=== PATIENT | male | born 1980 | race Caucasian/White ===

== ENCOUNTER 2022-10-18 13:14 | Emergency (ER) | payer OTHER, SELFPAY ==
[2022-10-18 13:26] VITALS: BP 144/90; PULSE 74; RESP 16; TEMP 36.6; O2SAT 99; BMI 22.4
--- NOTE | 2022-10-18 13:53 | PC.NURSE ---
CALL TO LOBBY NO ANSWER
[2022-10-18 14:05] LABS: Basophils # 0.1 10^3/uL (0.0-0.1); Basophils % 1.8 %; Eosinophils # 0.4 10^3/uL (0.0-0.8); Hematocrit 46.5 % (42.0-52.0); Lymphocytes % 32.8 %; Mean Corpuscular HGB Conc 32.3 g/dL (30.0-36.0); Mean Corpuscular Volume 89.8 fl (80-94); Mean Platelet Volume 9.8 fL (7.4-10.4); Monocytes # 0.3 10^3/uL (0.2-0.9); Monocytes % 4.5 %; Neutrophils # 3.38 10^3/uL (1.8-7.7); Neutrophils % 54.7 %; Nucleated Red Blood Cells % 0 %; Platelet Count 277 10^3/cmm (130-400); Red Blood Count 5.18 10^6/uL (4.1-5.3); Red Cell Distribution Width 11.8 % (12.1-15.1); White Blood Count 6.2 10^3/uL (4.0-10.0)
[2022-10-18 14:23] LABS: Alanine Aminotransferase 26 U/L (0-41); Albumin Level 4.7 g/dL (3.5-5.2); Alkaline Phosphatase 72 U/L (40-130); Anion Gap 17.6 (5-19); Aspartate Amino Transferase 23 U/L (0-40); Blood Urea Nitrogen 10 mg/dL (6-20); Calcium 9.6 mg/dL (8.5-10.5); Carbon Dioxide 27 mmol/L (22-29); Chloride 100 mmol/L (98-107); Globulin 3.1 g/dL (1.3-4.6); Glomerular Filtration Rate 93.5 mL/min (90-130); Glucose 108 mg/dL (65-115); Osmolality Calculated 290 mOsm/kg (285-295); Potassium 4.6 mmol/L (3.5-5.1); Sodium 140 mmol/L (136-145); Total Bilirubin 0.6 mg/dL (0.15-1.2); Total Protein 7.8 g/dL (6.6-8.7)
--- NOTE | 2022-10-18 14:50 | ED_ITS ---
HPI - Eye Problem General: Chief complaint: Eye Problems Stated complaint: vision gone on Right side Time Seen by Provider: 10/18/22 14:23 Source: patient Mode of arrival: ambulatory Limitations: no limitations History of Present Illness: Patient is a 42-year-old male who presents to ED today for evaluation of some visual changes to his right eye. Patient states over the past several years he has had approximately 7 total episodes where he will get what he describes as a diagonal wave of blurry vision to the right eye. He states following this he will then lose peripheral vision to the right eye. He states this happens over the course of about an hour or so. He states vision will then return to normal and he will get nauseous and developed a headache. He states if he can take a nap and take some Excedrin headache he will wake up with symptoms fully resolved. Patient states he has never sought any form of evaluation for this. He has never had any complete vision loss. No known problems with the right eye. Patient does wear glasses and feels like his eye exams are up-to-date. Terence robin states he is being seen today because he was told there could be some concern for temporal arteritis. Upon arrival to the ED and during my initial examination patient tells me his vision is back to normal. He does feel slightly nauseous. chief complaint: vision change Onset (ago): hour(s) Onset description: gradual Duration: improved and now resolved Location: right eye Mechanism: none Associated symptoms: Denies fever(s), headache(s) or neck pain Treatments Prior to Arrival: none Review of Systems Const: Denies: fever(s), chills, body aches, fatigue or malaise Eyes: Reports: change in vision and blurry vision; Denies: blind spots, photophobia, eye discomfort, eye discharge, floaters or seeing flashes Card: Denies: chest pain Resp: Denies: dyspnea GI: Denies: abdominal pain Musc: Denies: neck pain, back pain, extremity pain or joint pain Skin/Breast: Denies: rash Neuro: Denies: headache(s), numbness in extremities, weakness in extremities, sensory changes or dizziness Physical Exam Const: COMMON NORMALS: no acute distress, average body habitus, patient oriented x3, no limitations, healthy appearing, alert and well nourished GENERAL APPEARANCE: cooperative ORIENTATION/CONSCIOUSNESS: Yes awake, Yes oriented to person, Yes oriented to place and Yes oriented to time HENMT: COMMON NORMALS: normocephalic and atraumatic HEAD & SCALP: normal to inspection, normocephalic and atraumatic FACE & SINUS: normal facial exam Eye: COMMON NORMALS: Equal, round and reactive pupils present, EOMs intact bilaterally, conjunctivae normal and normal visual ramos by confrontation GENERAL EYE: appearance normal, both eyes and all related structures and normal light reflex VISUAL ACUITY: Yes acuity normal VISUAL RAMOS: No peripheral vision loss and No central vision loss ALIGNMENT: Yes alignment normal PERIORBITAL: periorbital findings normal EYELID: eyelids normal CONJUNCTIVA: Yes conjunctivae normal PUPIL: Yes Equal, round and reactive pupils present DIRECT OPHTHALMOSCOPY: Yes normal light reflex Neck/C-Spine: COMMON NORMALS: full ROM and no lymphadenopathy GENERAL: Yes normal visual inspection Neuro: AUBREY COMA SCALE: document GCS findings Aubrey coma scale eye open ing: Spontaneous Aubrey coma scale verbal response: Orientated Aubrey coma scale motor response: Obey commands [place] coma scale total score: 15 COMMON NORMALS: patient oriented x3 and CN's II-XII intact bilaterally SENSORIUM/ORIENTATION: Yes alert, Yes oriented to person, Yes oriented to place and Yes oriented to time Course Vital Signs: Vital signs: Vital Signs Temperature 97.9 F 10/18/22 13:26 Pulse Rate 74 10/18/22 13:26 Respiratory Rate 16 10/18/22 13:26 Blood Pressure 144/90 10/18/22 13:26 Pulse Oximetry 99 10/18/22 13:26 Oxygen Delivery Me thod Room Air 10/18/22 13:26 MDM - Eye Problem Medical Decision Making Re-assuring from an ED standpoint that this has been present for many years and patient has had several previous identical episodes. Patient's history and lack of risk factors does not seem consistent with carotid disease/embolic source or giant cell arteritis for cause (will add on ESR to blood work). Nothing to suggest seizure. No homonymous hemianopsia to suggest vertebrobasilar ischemia. Unlikely papilledema. Possible retinal vasospasm although unlikely given the nausea/headache history following visual change resolution. At this time I think symptoms most likely are secondary to an ocular/retinal migraine. Will go ahead and place referral for case management to get him set up with primary care for follow-up. Lab Data 10/18/22 13:49 10/18/22 13:49 Laboratory Results WBC 6.2 10^3/uL (4.0-10.0) 10/18/22 13:49 RBC 5.18 10^6/uL (4.1-5.3) 10/18/22 13:49 Hgb 15.0 g/dL (11.7-16.6) 10/18/22 13:49 Hct 46.5 % (42.0-52.0) 10/18/22 13:49 MCV 89.8 fl (80-94) 10/18/22 13:49 MCH 29.0 pg (28.0-34.0) 10/18/22 13:49 MCHC 32.3 g/dL (30.0-36.0) 10/18/22 13:49 RDW 11.8 % (12.1-15.1) L 10/18/22 13:49 Plt Count 277 10^3/cmm (130-400) 10/18/22 13:49 MPV 9.8 fL (7.4-10.4) 10/18/22 13:49 Neut % (Auto) 54.7 % 10/18/22 13:49 Lymph % (Auto) 32.8 % 10/18/22 13:49 [place] % (Auto) 4.5 % 10/18/22 13:49 Eos % (Auto) 6.0 % 10/18/22 13:49 Baso % (Auto) 1.8 % 10/18/22 13:49 Neut # (Auto) 3.38 10^3/uL (1.8-7.7) 10/18/22 13:49 Lymph # (Auto) 2.0 10^3/uL (0.8-4.8) 10/18/22 13:49 [place] # (Auto) 0.3 10^3/uL (0.2-0.9) 10/18/22 13:49 Eos # (Auto) 0.4 10^3/uL (0.0-0.8) 10/18/22 13:49 Baso # (Auto) 0.1 10^3/uL (0.0-0.1) 10/18/22 13:49 Nucleated RBC % (auto) 0 % 10/18/22 13:49 Nucleated RBCs # 0.0 /100WBC 10/18/22 13:49 Sodium 140 mmol/L (136-145) 10/18/22 13:49 Potassium 4.6 mmol/L (3.5-5.1) 10/18/22 13:49 Chloride 100 mmol/L (98-107) 10/18/22 13:49 Carbon Dioxide 27 mmol/L (22-29) 10/18/22 13:49 Anion Gap 17.6 (5-19) 10/18/22 13:49 BUN 10 mg/dL (6-20) 10/18/22 13:49 Creatinine 0.9 mg/dL (0.7-1.2) 10/18/22 13:49 GFR Calculation 93.5 mL/min (90-130) 10/18/22 13:49 Glucose 108 mg/dL (65-115) 10/18/22 13:49 Calculated Osmolality 290 mOsm/kg (285-295) 10/18/22 13:49 Calcium 9.6 mg/dL (8.5-10.5) 10/18/22 13:49 Total Bilirubin 0.6 mg/dL (0.15-1.2) 10/18/22 13:49 AST 23 U/L (0-40) 10/18/22 13:49 ALT 26 U/L (0-41) 10/18/22 13:49 Alkaline Phosphatase 72 U/L (40-130) 10/18/22 13:49 Total Protein 7.8 g/dL (6.6-8.7) 10/18/22 13:49 Albumin 4.7 g/dL (3.5-5.2) 10/18/22 13:49 Globulin 3.1 g/dL (1.3-4.6) 10/18/22 13:49 Discharge Plan Discharge Patient Disposition: Home Clinical Impression: Ocular migraine Condition: Stable Discharge Orders: Discharge ED (Routine); Ordered 10/18/22 Ordered By: Tana Lopez Patient Instructions: Ocular Migraine (ED) Activity Restrictions/Additional Instructions: As we discussed I believe symptoms most likely are secondary to an ocular migraine. I will go ahead and add an ESR onto your blood work as you mentioned concern for temporal arteritis/giant cell arteritis-I have a very low suspicion for this. I will contact you if this lab comes back elevated. Case management should contact you this week and set you up with a primary care provider. Coding Level of Care Code ED Sisal Operator for Lurdes Regan
[2022-10-18 15:13] LABS: Erythrocyte Sedimentation Rate < 1 mm/hr (0-10)
--- NOTE | 2022-10-19 08:44 | DCPLANNER ---
validation manager had message to speak with patient about getting established with a primary care physician. validation manager called patient, unable to speak with patient and unable to leave a voicemail for patient at this time.
== END 2022-10-18 14:53 | disposition home or self-care (01) ==
PROVIDERS: Emergency Medicine; Emergency Provider Physician Assistant
DX: G43.809 Other migraine, not intractable, without status migrainosus (principal)
CPT/HCPCS: 36415; 80053; 85025; 85651; 99283

== ENCOUNTER 2023-08-28 20:06 | Emergency (ER) | payer OTHER, SELFPAY ==
--- NOTE | 2023-08-28 20:08 | ECG_ITS ---
[facility] Test Date: 2023-08-28 Pat Name: Benjamin Carbajal Department: Room: Gender: Male Cash Poster: : 1980 Requested By: Suman Almanza Order Number: [id number] Larkin MD: Roselyn Chaves M.D. Measurements Intervals [place] Rate: 87 P: 70 MT: 112 QRS: 87 QRSD: 97 T: 59 QT: 362 QTc: 436 Interpretive Statements SINUS RHYTHM WITH SHORT MT INTERVAL MINIMAL VOLTAGE CRITERIA FOR LVH, CONSIDER NORMAL VARIANT [MEETS CRITERIA IN ONE OF: R(aVL), S(V1), R(V5), R(V5/V6)+S(V1)] No previous ECG available for comparison Electronically Signed On 08-29-2023 23:00:16 CDT by Roselyn Chaves M.D. [id number] f
--- NOTE | 2023-08-28 20:15 | XRR_ITS ---
PROCEDURE INFORMATION: Exam: XR Chest Exam date and time: 08/28/2023 8:38 PM Age: 42 years old Clinical indication: Chest pressure and sternal or substernal pain and right-sided; Additional info: Middle to right sided chest pain, radiates down back occasionally, feels like heat spreads throughout chest TECHNIQUE: Imaging protocol: Radiologic exam of the chest. Views: 1 view. COMPARISON: No relevant prior studies available. FINDINGS: Lungs: Unremarkable. No consolidation. Pleural spaces: Unremarkable. No pleural effusion. No pneumothorax. Heart/Mediastinum: Unremarkable. No cardiomegaly. Bones/joints: Unremarkable. XR/XR chest 1V portable [id number] IMPRESSION: No acute findings.
[2023-08-28 20:19] VITALS: BP 156/95; PULSE 88; RESP 16; TEMP 36.7; O2SAT 100
[2023-08-28 20:40] LABS: Basophils # 0.1 10^3/uL (0.0-0.1); Eosinophils # 0.3 10^3/uL (0.0-0.8); Eosinophils % 4.5 %; Hematocrit 43.6 % (37-53); Lymphocytes % 45.3 %; Mean Corpuscular Hemoglobin 29.7 pg (27-33); Mean Corpuscular Volume 89.9 fl (82-101); Mean Platelet Volume 9.6 fL (7.4-10.4); Monocytes # 0.3 10^3/uL (0.2-0.9); Monocytes % 4.3 %; Neutrophils # 2.99 10^3/uL (1.8-7.7); Neutrophils % 44.8 %; Nucleated Red Blood Cells % 0 %; Platelet Count 273 10^3/cmm (157-399); Red Blood Count 4.85 10^6/uL (3.85-5.65); Red Cell Distribution Width 11.6 % (12.1-15.1); White Blood Count 6.69 10^3/uL (3.29-11.43)
[2023-08-28 21:02] LABS: Alanine Aminotransferase 21 U/L (0-41); Albumin Level 4.7 g/dL (3.5-5.2); Alkaline Phosphatase 67 U/L (40-130); Anion Gap 13.9 (5-19); Aspartate Amino Transferase 18 U/L (0-40); Blood Urea Nitrogen 11 mg/dL (6-20); Calcium 9.1 mg/dL (8.5-10.5); Carbon Dioxide 28 mmol/L (22-29); Chloride 101 mmol/L (98-107); Creatinine Clr Calc Pharmacy 105.8326; Globulin 2.6 g/dL (1.3-4.6); Glomerular Filtration Rate 107.1 mL/min (90-130); Glucose 121 mg/dL (65-115); Osmolality Calculated 289 mOsm/kg (285-295); Potassium 3.9 mmol/L (3.5-5.1); Sodium 139 mmol/L (136-145); Total Bilirubin 0.5 mg/dL (0.15-1.2); Total Protein 7.3 g/dL (6.6-8.7)
[2023-08-28 21:04] LABS: Troponin(5th) Baseline < 6 ng/L (0-15)
--- NOTE | 2023-08-28 21:23 | W.ED.CHESTPA ---
HPI - Chest Pain General: Chief Complaint: Chest Pain Stated Complaint: chest pain heart racing Time Seen by Provider: 08/28/23 21:09 History of Present Illness: 42-year-old male presents emergency department states that he has had 2 episodes of intermittent sharp stabbing chest discomfort that he states is to the right side of his chest. He denies shortness of breath nausea vomiting fevers chills or night sweats. He states that when the sharp stabbing chest pain occurred the pain was a 5 out of 10 and at present here in the emergency department it is a 1 out of 10. He does not appear to be in any acute distress. He states he has never had any problems like this in the past. He states that nothing made the pain worse in the pain dissipated on its own. He states that he feels like it may have been a spasm of his esophagus or reflux, as the pain turned into a burning type substernal pain after it initially was sharp. Associated symptoms: Reports palpitations Review of Systems General: Reports: 10 or more systems reviewed and unremarkable except in HPI and below Card: Reports: chest pain and palpitations GI: Reports: heartburn Physical Exam Narrative: EXAM NARRATIVE: Constitutional: the patient appears well nourished and of normal development. Vital signs as documented. No acute distress at present. Alert and oriented-to person, place, time and situation. Head, eyes, ears, nose, mouth, throat: Normocephalic, atraumatic. Pupils-equal, round, reactive to light. No scleral icterus. Normal-appearing external ears. Normal appearing nasal turbinates, no drainage. No obvious oral lesions, posterior oropharynx without erythema or exudates. Neck: Supple, trachea is midline, no lymphadenopathy, no jugular venous distension, thyromegaly, or carotid bruits. Carotid upstrokes are brisk bilaterally. Lungs: clear to auscultation to all lung warren. Symmetrical rise and fall of chest, no obvious signs of increased work of breathing at present. Cardiac: Regular rate and rhythm, positive S1, S2. No murmurs, rubs or gallops that I can appreciate Abdomen: Soft, non-tender to palpation, normal active bowel sounds to all quadrants. No palpable masses, no organomegaly and abdominal bruits. Extremities: 2+ pulses in the upper extremities that are equal bilaterally, 2+ pulses in the lower extremities that are equal bilaterally. Non-edematous. Moves all extremities well, sensation to all extremities are noted. Skin: Warm, dry, intact. Course Reevaluation(s): Reevaluation #1: I discussed the laboratory findings and reevaluation the patient after he received a GI cocktail, he states improved and complete resolution of his discomfort. Time: 23:01 Vital Signs: Vital signs: Vital Signs Temperature 98.1 F 08/28/23 20:19 Pulse Rate 62 08/28/23 22:48 Respiratory Rate 16 08/28/23 20:19 Blood Pressure 156/95 08/28/23 20:19 Pulse Oximetry 100 08/28/23 20:19 MDM - Chest Pain Medical Decision Making Physical exam completed and documented twelve-lead EKG obtained no acute findings cardiac enzyme was negative patient remains chest pain-free no significant abnormality on his CBC and CMP I did provide the patient a GI cocktail and he did state relief. I discussed the laboratory findings with the patient and I we will discharge him home with recommended follow-up with a primary care provider of his choice. Medical Records I reviewed the patient's medical records. Lab Data I reviewed the patient's lab results. 08/28/23 20:33 08/28/23 20:33 Radiology Impressions Chest X-Ray 08/28/23 20:15 IMPRESSION: No acute findings. Laboratory Results WBC 6.69 10^3/uL (3.29-11.43) 08/28/23 20:33 RBC 4.85 10^6/uL (3.85-5.65) 08/28/23 20:33 Hgb 14.40 g/dL (11.27-16.99) 08/28/23 20:33 Hct 43.6 % (37-53) 08/28/23 20:33 MCV 89.9 fl (82-101) 08/28/23 20:33 MCH 29.7 pg (27-33) 08/28/23 20: MCHC 33.0 g/dL (30-55) 08/28/23 20:33 RDW 11.6 % (12.1-15.1) L 08/28/23 20:33 Plt Count 273 10^3/cmm (157-399) 08/28/23 20:33 MPV 9.6 fL (7.4-10.4) 08/28/23 20:33 Neut % (Auto) 44.8 % 08/28/23 20: Lymph % (Auto) 45.3 % 08/28/23 20:33 [place] % (Auto) 4.3 % 08/28/23 20:33 Eos % (Auto) 4.5 % 08/28/23 20:33 Baso % (Auto) 1.0 % 08/28/23 20: Neut # (Auto) 2.99 10^3/uL (1.8-7.7) 08/28/23 20: Lymph # (Auto) 3.0 10^3/uL (0.8-4.8) 08/28/23 20: [place] # (Auto) 0.3 10^3/uL (0.2-0.9) 08/28/23 20: Eos # (Auto) 0.3 10^3/uL (0.0-0.8) 08/28/23 20: Baso # (Auto) 0.1 10^3/uL (0.0-0.1) 08/28/23 20: Nucleated RBC % (auto) 0 % 08/28/23 20: Nucleated RBCs # 0.0 /100WBC 08/28/23 20:33 Sodium 139 mmol/L (136-145) 08/28/23 20:33 Potassium 3.9 mmol/L (3.5-5.1) 08/28/23 20:33 Chloride 101 mmol/L (98-107) 08/28/23 20:33 Carbon Dioxide 28 mmol/L (22-29) 08/28/23 20:33 Anion Gap 13.9 (5-19) 08/28/23 20:33 BUN 11 mg/dL (6-20) 08/28/23 20:33 Creatinine 0.8 mg/dL (0.7-1.2) 08/28/23 20:33 GFR Calculation 107.1 mL/min (90-130) 08/28/23 20:33 Glucose 121 mg/dL (65-115) H 08/28/23 20:33 Calculated Osmolality 289 mOsm/kg (285-295) 08/28/23 20:33 Calcium 9.1 mg/dL (8.5-10.5) 08/28/23 20:33 Total Bilirubin 0.5 mg/dL (0.15-1.2) 08/28/23 20:33 AST 18 U/L (0-40) 08/28/23 20:33 ALT 21 U/L (0-41) 08/28/23 20:33 Alkaline Phosphatase 67 U/L (40-130) 08/28/23 20:33 Troponin T Baseline < 6 ng/L (0-15) 08/28/23 20:33 Total Protein 7.3 g/dL (6.6-8.7) 08/28/23 20:33 Albumin 4.7 g/dL (3.5-5.2) 08/28/23 20:33 Globulin 2.6 g/dL (1.3-4.6) 08/28/23 20:33 All radiology interpretation(s) finalized by discharge EKG Data EKG 1: Interpretation: Twelve-lead EKG obtained at 2007 and reviewed at 2009 demonstrates sinus rhythm at a rate of 87, AL interval 112, QRS duration 97, QT [address] elevation or depression at present to demonstrate acute ischemia or infarction. EKG 2: Interpretation: Twelve-lead EKG obtained at 2126 reviewed at 2129 demonstrates sinus bradycardia at a rate of 59 bpm, AL interval 111, QRS duration 97, QT 379, QTc [address] elevation or depression to demonstrate acute ischemia or infarction at present. Discharge Plan Discharge Patient Disposition: Home Clinical Impression: Atypical chest pain, Esophageal spasm, Chest pain due to GERD Condition: Stable Prescriptions: New pantoprazole 20 mg tablet,delayed release (DR/EC) 20 mg PO DAILY 28 Days Qty: 30 0RF Discharge Orders: Discharge ED (Routine); Ordered 08/28/23 Ordered By: Naman Bradshaw Referrals: Landon Reis DO [Physician] - Discharge Diet: Usual diet Discharge Activity: Resume usual activity Patient Instructions: Opioid Safety, Pain Management Activity Restrictions/Additional Instructions: Activity Restrictions/Additional Instructions: Thank you for choosing [facility] for your healthcare needs today. Please realize that you were seen in the Emergency Department and that we are providing you with an emergency medical screening exam and this may not be a complete and all inclusive of all the testing and or medical work-up that you may need to determine your ailment or severity of your illness. It is very important that you follow-up as instructed with your Primary care provider or Specialist for additional evaluation and to discuss your medical treatment plan. Coding Level of Care Code ED Roaster Operator for Lurdes Regan
[2023-08-28] MEDS: lidocaine 2% viscous 15 ML, aluminum-mag hydrox-simethicon 30 ML, sucralfate oral liq 1 GM PO (21:53)
--- NOTE | 2023-08-28 22:16 | ECG_ITS ---
[facility] Test Date: 2023-08-28 Pat Name: Benjamin Carbajal Department: Room: Gender: Male Health Care Coach: : 1980 Requested By: Suman Almanza Order Number: [id number] Trae MD: Roselyn Chaves M.D. Measurements Intervals [place] Rate: 59 P: 12 DC: 111 QRS: 78 QRSD: 97 T: 45 QT: 379 QTc: 376 Interpretive Statements SINUS BRADYCARDIA WITH SHORT DC INTERVAL EARLY REPOLARIZATION [ST ELEVATION WITH NORMALLY INFLECTED T-WAVE] No previous ECG available for comparison Electronically Signed On 08-29-2023 23:17:56 CDT by Roselyn Chaves M.D. [id number]
[2023-08-28 22:48] VITALS: PULSE 62
[2023-08-28 23:19] LABS: Troponin 5 2HR 7.44 ng/L (0-15); Troponin 5 2HR Delta 1.44001 ABS# (0-10)
[2023-08-28 23:42] VITALS: BP 112/74; PULSE 62; RESP 18
== END 2023-08-28 23:18 | disposition home or self-care (01) ==
PROVIDERS: Emergency Medicine; Emergency Provider Internal Medicine
DX: R07.89 Other chest pain (principal); K21.9 Gastro-esophageal reflux disease without esophagitis; K22.4 Dyskinesia of esophagus
CPT/HCPCS: 36415; 71045; 80053; 84484; 85025; 93005; 99285

== ENCOUNTER 2023-09-15 06:26 | Outpatient (CLI) | payer OTHER, SELFPAY ==
--- NOTE | 2023-09-15 06:45 | US_ITS ---
WS: [id number] RIGHT UPPER QUADRANT ULTRASOUND HISTORY: epigastric pain COMPARISON: None available. Liver: 14.9 cm in length. Normal size liver and echogenicity. No bile duct dilatation or mass. Portal Vein: Normal hepatopetal flow with monophasic waveform. Gallbladder: Normally distended gallbladder. There is a nonmobile, nonshadowing focus in the gallblad nick measuring 5 x 4 mm. Most consistent with a small hyperplastic gallbladder polyp. No stones. CBD: 0.3 cm Pancreas: Normal size and echogenicity. Right kidney: 9.7 cm in length. Normal size and echogenicity. No hydronephrosis or mass. Aorta and IVC: Unremarkable abdominal aorta and IVC. No ascites. IMPRESSION: 1. No cholelithiasis. 2. Small, hyperplastic gallbladder polyp. 3. Otherwise negative.
== END 2023-09-15 06:27 | disposition home or self-care (01) ==
LOC: RAD 06:26
PROVIDERS: PCP Family Medicine; Visit Provider Surgery
DX: K82.4 Cholesterolosis of gallbladder (principal); R10.13 Epigastric pain
CPT/HCPCS: 76705

== ENCOUNTER 2023-09-20 10:45 | Day surgery (SDC) | payer OTHER, SELFPAY ==
[2023-09-20 12:44] VITALS: BP 124/87; PULSE 57; RESP 20; TEMP 36.1; O2SAT 100; BMI 20.1
[2023-09-20] MEDS: sodium chloride 0.9% 1,000 ML 30 ML IV (13:48)
--- NOTE | 2023-09-20 14:41 | W.PM.OPSUD ---
Surgery/Procedure H&P Update DATE OF PROCEDURE: September 20, 2023 DATE H&P PERFORMED: 09/06/23 H&P UPDATE INFORMATION: I have reviewed H&P completed within last 30 days, I have examined patient prior to procedure and No changes to prior documentation PLANNED PROCEDURE: Operation Date: 09/20/23 13:30 Proposed Procedures p EGD(Not Applicable) - Landon Reis DO
[2023-09-20 15:01] VITALS: BP 109/61; PULSE 58; RESP 12; TEMP 36.4; O2SAT 100
[2023-09-20 15:15] VITALS: BP 126/80; PULSE 50; RESP 18; O2SAT 100
--- NOTE | 2023-09-20 15:30 | ANE.PACU2 ---
Inpatient post-anesthesia follow up: Airway intact: Yes Vital signs: Temperature 97.6 F Pulse Rate 50 Respiratory Rate 18 Blood Pressure 126/80 Pulse Oximetry 100 Oxygen Delivery Me thod Room Air Oxygen Flow Rate Fraction of Inspir ed Oxygen Hydration adequate: Yes Nausea and vomiting: No Pain level: 1 Mental status: Baseline
== END 2023-09-20 15:30 | disposition home or self-care (01) ==
PROVIDERS: PCP Family Medicine; Visit Provider Surgery
PROC: 0DJ08ZZ Inspection of Upper Intestinal Tract, Via Natural or Artificial Opening Endoscopic (ICD-10-PCS; CPT 43235; principal; 2023-09-20 13:30)
DX: R13.10 Dysphagia, unspecified (principal); K29.50 Unspecified chronic gastritis without bleeding
CPT/HCPCS: 43239; 88305; J2704; J7030

== ENCOUNTER 2023-10-13 07:44 | Outpatient (CLI) | payer OTHER, SELFPAY ==
--- NOTE | 2023-10-13 08:00 | NM_ITS ---
WS: [id number] NUCLEAR MEDICINE HIDA SCAN WITH GALLBLADDER EJECTION FRACTION HISTORY: epigastric pain COMPARISON: Gallbladder ultrasound 09/15/2023 TECHNIQUE: The patient was intravenously injected with 7.5 mCi of TC99m Mebrofenin. Immediate imaging over the right upper quadrant was followed by 5 minute image and additional images for a total of 60 minutes. Normal uptake of radiotracer throughout the liver. Activity identified in the gallbladder at 15 minutes and well distended by 60 minutes. Activity in the proximal small bowel was seen by 30 minutes. Good washout of the radiotracer from the liver by 60 minutes. The patient then drank 8 ounces of Ensure Plus. Ejection fraction at 60 minutes was 85%. Normal GB ej ection fraction is 35-75%. Post fatty meal symptoms: None. IMPRESSION: 1. Normal HIDA scan. 2. Normal gallbladder ejection fraction.
== END 2023-10-13 07:45 | disposition home or self-care (01) ==
LOC: RAD 07:45
PROVIDERS: PCP Family Medicine; Visit Provider Surgery
DX: R10.13 Epigastric pain (principal)
CPT/HCPCS: 78227; A9537

== ENCOUNTER 2024-01-11 09:56 | Emergency (ER) | payer OTHER, SELFPAY ==
[2024-01-11 10:06] VITALS: BP 144/89; PULSE 73; RESP 18; TEMP 36.8; O2SAT 99; BMI 21.7
[2024-01-11 11:43] LABS: Basophils # 0.1 10^3/uL (0.0-0.1); Basophils % 1.7 %; Eosinophils # 0.6 10^3/uL (0.0-0.8); Eosinophils % 9.4 %; Hematocrit 48.6 % (37-53); Mean Corpuscular HGB Conc 32.7 g/dL (30-55); Mean Corpuscular Hemoglobin 29.7 pg (27-33); Mean Corpuscular Volume 90.8 fl (82-101); Mean Platelet Volume 9.8 fL (7.4-10.4); Monocytes # 0.4 10^3/uL (0.2-0.9); Monocytes % 6.2 %; Neutrophils # 2.77 10^3/uL (1.8-7.7); Neutrophils % 47.5 %; Nucleated Red Blood Cells % 0 %; Platelet Count 265 10^3/cmm (157-399); Red Blood Count 5.35 10^6/uL (3.85-5.65); Red Cell Distribution Width 11.9 % (12.1-15.1); White Blood Count 5.83 10^3/uL (3.29-11.43)
--- NOTE | 2024-01-11 11:48 | CT_ITS ---
WS: [id number] CT NECK WITH CONTRAST HISTORY: r neck and jaw pain TECHNIQUE: Contiguous 2 mm axial images are performed through the neck with intravenous contrast. Sag ittal and coronal reformats are also submitted. All CT scans at [facility] use at least one o f these dose optimization techniques: automated exposure control; mA and/or kV adjustment per patient size (includes targeted exams where dose is matched to clinical indication); or iterative reconstruc tion. CONTRAST: CONTRAST: Omnipaque 350; 100 mL IV. DLP: 216.41 mGy.cm COMPARISON: None available. [place] tonsils are very mildly prominent but there is no mass or abnormal enhancement. Larynx and s ubglottic airway are negative. Torus tubarius and fossa of Rosenmuller and parapharyngeal fat are normal. No significant lymphadenopathy is identified. Thyroid gland and salivary glands are normally enhancing with no masses. No osseous abnormalities. Visualized portions of the skull base demonstrate no abnormalities. Orbits and globes are within norm al limits. No soft tissue masses. Visualized paranasal sinuses and mastoid air cells are normal. Lung apices are clear. CT/CT neck w con* [id number] IMPRESSION: 1. No acute abnormality noted in the neck CT. There are small lymph nodes. 2. Mildly prominent adenoid and [place] tonsil tissue which is symmetric. If there is difficulty swallowing direct visualization could be obtained. 3. No disc protrusions are identified or central cervical stenosis. If neck pa in persists MRI C-spine on a nonemergent basis may be of benefit.
--- NOTE | 2024-01-11 11:50 | ED_ITS ---
HPI - Neck Pain/Injury 2 General: Chief Complaint: Neck Pain/Injury Stated Complaint: Neck & Jaw pain Time Seen by Provider: 01/11/24 11:44 Source: patient Mode of arrival: ambulatory Limitations: no limitations History of Present Illness: 43-year-old male who states that he been having right-sided neck and jaw pain since August states he had seen a dentist and had to right lower molars pulled states his kidney had pain and some numbness and concerned that he may have cancer. Patient denies any fevers denies any worse improving factors. Associated symptoms: Denies headache(s) or nausea Review of Systems 2 Const: Denies: fever(s), chills, body aches or change in appetite ENMT: Denies: throat pain or dental pain Card: Denies: chest pain Resp: Denies: dyspnea GI: Denies: abdominal pain, nausea, vomiting or diarrhea Musc: Denies: neck pain or back pain Skin/Breast: Denies: rash Neuro: Denies: headache(s) PFSH ED 2 PFSH: Medical History Ocular migraine Surgical History No pertinent past surgical history Social History Smoking and tobacco/nicotine status: former use of tobacco/nicotine Quit status (tobacco/nicotine): has quit using Year quit tobacco: 2011 Second hand smoke exposure: Yes Alcohol intake: never Substance/Drug Use: never Adopted: No service: No Current occupation: Pathology Current occupational exposures/hazards: Yes Current gender identity: Male Physical Exam 2 Const: COMMON NORMALS: no acute distress, patient oriented x3 and healthy appearing HENMT: COMMON NORMALS: normocephalic and atraumatic HEAD & SCALP: n ormocephalic and atraumatic TYMPANIC MEMBRANE: TM normal on the right O THER: No obvious abnormalities to right lower teeth exam the right side of the neck is normal Eye: COMMON NORMALS: Equal, round and reactive pupils present and EOMs intact bilaterally PUPIL: Yes Equal, round and reactive pupils present Neck/C-Spine: COMMON NORMALS: full ROM and supple Chest: COMMONS NORMALS: normal inspection of the chest Resp: COMMON NORMALS: normal respiratory effort Extremity: COMMON NORMALS: normal to inspection and full ROM Neuro: COMMON NORMALS: patient oriented x3, moves all extremities and no focal motor deficits Psych: COMMON NORMALS: mental status grossly normal, Normal thought process present and cooperative THOUGHT PROCESS: Normal thought process present Skin: COMMON NORMALS: no rashes or lesions noted and no wounds GENERAL SKIN EXAM: no rashes or lesions noted Course 2 Vital Signs: Vital signs: Vital Signs Temperature 98.2 F 01/11/24 10:06 Pulse Rate 73 01/11/24 10:06 Respiratory Rate 18 01/11/24 10:06 Blood Pressure 144/89 01/11/24 10:06 Pulse Oximetry 99 01/11/24 10:06 Oxygen Delivery Me thod Room Air 01/11/24 10:06 MDM - Neck Pain/Injury Medical Decision Making Patient presents with right-sided neck pain is going on for months CT scan blood work here is all normal he is to follow-up with his PCP return if worsening he understands agrees to plan Medical Records I reviewed the patient's medical records. Lab Data I reviewed the patient's lab results. 01/11/24 11:35 01/11/24 11:[address] 01/11/24 11:48 IMPRESSION: 1. No acute abnormality noted in the neck CT. There are small lymph nodes. 2. Mildly prominent adenoid and Colby tonsil tissue which is symmetric. If there is difficulty swallowing direct visualization could be obtained. 3. No disc protrusions are identified or central cervical stenosis. If neck pain persists MRI C-spine on a nonemergent basis may be of benefit. Laboratory Results WBC 5.83 10^3/uL (3.29-11.43) 01/11/24 11:35 RBC 5.35 10^6/uL (3.85-5.65) 01/11/24 11:35 Hgb 15.90 g/dL (11.27-16.99) 01/11/24 11:35 Hct 48.6 % (37-53) 01/11/24 11:35 MCV 90.8 fl (82-101) 01/11/24 11:35 MCH 29.7 pg (27-33) 01/11/24 11:35 MCHC 32.7 g/dL (30-55) 01/11/24 11:35 RDW 11.9 % (12.1-15.1) L 01/11/24 11:35 Plt Count 265 10^3/cmm (157-399) 01/11/24 11:35 MPV 9.8 fL (7.4-10.4) 01/11/24 11:35 Neut % (Auto) 47.5 % 01/11/24 11:35 Lymph % (Auto) 35.0 % 01/11/24 11:35 [place] % (Auto) 6.2 % 01/11/24 11:35 Eos % (Auto) 9.4 % 01/11/24 11:35 Baso % (Auto) 1.7 % 01/11/24 11:35 Neut # (Auto) 2.77 10^3/uL (1.8-7.7) 01/11/24 11:35 Lymph # (Auto) 2.0 10^3/uL (0.8-4.8) 01/11/24 11:35 [place] # (Auto) 0.4 10^3/uL (0.2-0.9) 01/11/24 11:35 Eos # (Auto) 0.6 10^3/uL (0.0-0.8) 01/11/24 11:35 Baso # (Auto) 0.1 10^3/uL (0.0-0.1) 01/11/24 11:35 Nucleated RBC % (auto) 0 % 01/11/24 11:35 Nucleated RBCs # 0.0 /100WBC 01/11/24 11:35 Sodium 138 mmol/L (136-145) 01/11/24 11:35 Potassium 4.5 mmol/L (3.5-5.1) 01/11/24 11:35 Chloride 100 mmol/L (98-107) 01/11/24 11:35 Carbon Dioxide 28 mmol/L (22-29) 01/11/24 11:35 Anion Gap 14.5 (5-19) 01/11/24 11:35 BUN 11 mg/dL (6-20) 01/11/24 11:35 Creatinine 0.8 mg/dL (0.7-1.2) 01/11/24 11:35 GFR Calculation 106.5 mL/min (90-130) 01/11/24 11:35 Glucose 89 mg/dL (65-115) 01/11/24 11:35 Calculated Osmolality 285 mOsm/kg (285-295) 01/11/24 11:35 Calcium 9.4 mg/dL (8.5-10.5) 01/11/24 11:35 Total Bilirubin 0.4 mg/dL (0.15-1.2) 01/11/24 11:35 AST 21 U/L (0-40) 01/11/24 11:35 ALT 28 U/L (0-41) 01/11/24 11:35 Alkaline Phosphatase 71 U/L (40-130) 01/11/24 11:35 Total Protein 7.8 g/dL (6.6-8.7) 01/11/24 11:35 Albumin 4.8 g/dL (3.5-5.2) 01/11/24 11:35 Globulin 3.0 g/dL (1.3-4.6) 01/11/24 11:35 All radiology interpretation(s) finalized by discharge Discharge Plan Discharge Patient Disposition: Home Clinical Impression: Neck pain on right side Condition: Stable Prescriptions: No Action prednisone 20 mg tablet 40 mg PO DAILY 5 Days Qty: 10 0RF cyclobenzaprine 7.5 mg tablet 7.5 mg PO TID PRN (Reason: muscle spasm) Qty: 30 0RF ibuprofen 800 mg tablet 800 mg PO Q8H PRN (Reason: Pain) 6 Days Qty: 18 0RF fluoxetine 20 mg tablet 20 mg PO DAILY Qty: 60 0RF Discharge Orders: Discharge ED (Routine); Ordered 01/11/24 Ordered By: Ran Smith Referrals: Tyrell Bernal MD [Primary Care Provider] - Discharge Diet: Advance as tolerated Discharge Activity: Resume usual activity Patient Instructions: Neck Pain (ED) Coding Level of Care Code ED Computer Forensic Examiner for Lurdes Regan
[2024-01-11 12:06] LABS: Alanine Aminotransferase 28 U/L (0-41); Albumin Level 4.8 g/dL (3.5-5.2); Alkaline Phosphatase 71 U/L (40-130); Anion Gap 14.5 (5-19); Aspartate Amino Transferase 21 U/L (0-40); Blood Urea Nitrogen 11 mg/dL (6-20); Calcium 9.4 mg/dL (8.5-10.5); Carbon Dioxide 28 mmol/L (22-29); Chloride 100 mmol/L (98-107); Creatinine Clr Calc Pharmacy 107.8928; Glomerular Filtration Rate 106.5 mL/min (90-130); Glucose 89 mg/dL (65-115); Osmolality Calculated 285 mOsm/kg (285-295); Potassium 4.5 mmol/L (3.5-5.1); Sodium 138 mmol/L (136-145); Total Bilirubin 0.4 mg/dL (0.15-1.2); Total Protein 7.8 g/dL (6.6-8.7)
[2024-01-11] MEDS: iohexol 350 mg/mL 500 mL Btl (per mL) IV (12:07)
--- NOTE | 2024-01-11 13:13 | ECG_ITS ---
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 Measurements Intervals [place] Rate: 51 P: 39 [place]: 127 QRS: 71 QRSD: 93 T: 45 QT: 398 QTc: 368 Interpretive Statements SINUS BRADYCARDIA EARLY REPOLARIZATION [ST ELEVATION WITH NORMALLY INFLECTED T-WAVE] TALL T-WAVES, SUGGESTS HYPERKALEMIA Compared to ECG 08/28/2023 21:27:40 Short [place] interval no longer present Electronically Signed On 01-12-2024 0:54:45 CDT by Roselyn Chaves M.D. [email or web address]
[2024-01-11 13:25] VITALS: BP 111/76; PULSE 58; RESP 16; TEMP 36.8; O2SAT 100
== END 2024-01-11 13:27 | disposition home or self-care (01) ==
PROVIDERS: Emergency Provider Emergency Medicine; PCP Family Medicine
DX: M54.2 Cervicalgia (principal); Z87.891 Personal history of nicotine dependence
CPT/HCPCS: 36415; 70491; 80053; 85025; 93005; 99285; Q9967

== ENCOUNTER 2024-10-12 04:16 | Emergency (ER) | payer SELFPAY ==
[2024-10-12 04:35] VITALS: BP 136/76; PULSE 97; RESP 18; TEMP 36.7; O2SAT 97; BMI 24.2
--- NOTE | 2024-10-12 06:03 | ED_ITS ---
HPI - Anxiety 2 General: Chief Complaint: Anxiety Stated Complaint: Pain R side of face moving down,legs numb Time Seen by Provider: 10/12/24 06:02 History of Present Illness: 43-year-old male presents to the emergen cy room complaining of a sensation that emanates from the right side of his maxilla he describes it as radiating down into his chest via his neck and radiating all the way to his legs. He describes his legs as convulsing. He has not had any loss of consciousness with this. No chest pain no abdominal pain no fever sweats or chills. Denies any teeth pain sinus drainage or sinus pain or tenderness. No cough or shortness of breath. Reviewing through his chart he has had previous ER visits with similar complaint in December 2023 for similar presenting complaints CT was negative that time was unremarkable. Prior to that he was seen in August 2019 for for discomfort in the same region. At that time he was deferred to dentistry was treated with Augmentin. Patient has no history of seizures. Associated symptoms: Deny chest pain, chills or fever(s) Related Data Home Medications ?Medication ?Instructions ?Recorded ?Confirmed ibuprofen 200 mg tablet (Advil) 800 mg PO Q6H PRN Feve r Or Pain 10/12/24 10/12/24 Previous Rx's ?Medication ?Instructions ?Recorded amoxicillin 875 mg-potassium 1 tab PO BID #20 tabs clavulanate 125 mg tablet Allergies Allergy/AdvReac Type Severity Reaction Status Date / Time No Known Allergies Allergy Verified 10/16/23 15:23 Review of Systems 2 Const: Denies: fever(s) or chills Card: Denies: chest pain Resp: Denies: dyspnea GI: Denies: abdominal pain : Denies: dysuria, urinary frequency or urinary urgency Musc: Denies: neck pain or back pain Skin/Breast: Denies: rash PFSH ED 2 PFSH: Medical History Ocular migraine Surgical History No pertinent past surgical history Social History Smoking and tobacco/nicotine status: former use of tobacco/nicotine Quit status (tobacco/nicotine): has quit using Year quit tobacco: 2011 Second hand smoke exposure: Yes Alcohol intake: never Substance/Drug Use: never Adopted: No service: No Current occupation: Pathology Current occupational exposures/hazards: Yes Current gender identity: Male Physical Exam 2 Const: COMMON NORMALS: no acute distress GENERAL APPEARANCE: cooperative and comfortable ORIENTATION/CONSCIOUSNESS: Yes awake, Yes oriented to person, Yes oriented to place and Yes oriented to time HENMT: COMMON NORMALS: normocephalic, atraumatic and hearing grossly normal bilaterally HEAD & SCALP: normocephalic and atraumatic Resp: COMMON NORMALS: normal respiratory effort, No retractions, No use of accessory muscles and clear to auscultation bilaterally AUSCULTATION: clear to auscultation bilaterally Cardio: COMMON NORMALS: regular rate, regular rhythm and No murmurs present (Cardio) RATE: regular rate RHYTHM: regular rhythm GI: COMMON NORMALS: Soft to palpation and No hepatosplenomegaly present A USCULTATION: Yes normoactive bowel sounds PALPATION: Yes Soft to palpation, No Tenderness to palpation present (GI), No Guarding due to palpation present (GI) and Yes No hepatosplenomegaly present Extremity: COMMON NORMALS: normal to inspection, capillary refill normal, no clubbing, cyanosis or edema, no calf tenderness and no pedal edema Neuro: SENSORIUM/ORIENTATION: Yes oriented to person, Yes oriented to place and Yes oriented to time Skin: COMMON NORMALS: no rashes or lesions noted GENERAL SKIN EXAM: no rashes or lesions noted Course 2 Vital Signs: Vital signs: Vital Signs Temperature 98.1 F 10/12/24 04:35 Pulse Rate 77 10/12/24 06:10 Respiratory Rate 16 10/12/24 06:10 Blood Pressure 124/72 10/12/24 06:10 Pulse Oximetry 98 10/12/24 06:10 Oxygen Delivery Me thod Room Air 10/12/24 06:10 MDM - Anxiety Medical Decision Making CT shows a chronic sinusitis we will treat this. Anatomically is not really anything that would seem to connect all of these things. He has had 3 other visits with similar complaints which is why we did the CT of his facial bones since most of his pain seems to continually emanate from there. At his previous visits he did not complain of what he describes as convulsing. He does seem to remember all of these episodes. He described it to the nurses convulsing he described to me as his leg was shaking more. Another possibility would be a partial complex seizure if he continues to have symptoms this may need to be worked up as an outpatient. He should follow-up with his primary care doctor. Medical Records I reviewed the patient's medical records. Lab Data I reviewed the patient's lab results. 10/12/24 06:14 10/12/24 06:14 Radiology Impressions Chest X-Ray 10/12/24 06:04 IMPRESSION: No acute findings. Face CT 10/12/24 07:05 IMPRESSION: Mild chronic sinusitis. Laboratory Results WBC 14.78 10^3/uL (3.29-11.43) H 10/12/24 06:14 RBC 5.09 10^6/uL (3.85-5.65) 10/12/24 06:14 Hgb 14.90 g/dL (11.27-16.99) 10/12/24 06:14 Hct 45.3 % (37-53) 10/12/24 06:14 MCV 89.0 fl (82-101) 10/12/24 06:14 MCH 29.3 pg (27-33) 10/12/24 06:14 MCHC 32.9 g/dL (30-55) 10/12/24 06:14 RDW 11.9 % (12.1-15.1) L 10/12/24 06:14 Plt Count 277 10^3/cmm (157-399) 10/12/24 06:14 MPV 9.6 fL (7.4-10.4) 10/12/24 06:14 Neut % (Auto) 85.0 % 10/12/24 06:14 Lymph % (Auto) 8.3 % 10/12/24 06:14 [place] % (Auto) 5.3 % 10/12/24 06:14 Eos % (Auto) 0.7 % 10/12/24 06:14 Baso % (Auto) 0.5 % 10/12/24 06:14 Neut # (Auto) 12.56 10^3/uL (1.8-7.7) H 10/12/24 06:14 Lymph # (Auto) 1.2 10^3/uL (0.8-4.8) 10/12/24 06:14 [place] # (Auto) 0.8 10^3/uL (0.2-0.9) 10/12/24 06:14 Eos # (Auto) 0.1 10^3/uL (0.0-0.8) 10/12/24 06:14 Baso # (Auto) 0.1 10^3/uL (0.0-0.1) 10/12/24 06:14 Nucleated RBC % (auto) 0 % 10/12/24 06:14 Nucleated RBCs # 0.0 /100WBC 10/12/24 06:14 Sodium 138 mmol/L (136-145) 10/12/24 06:14 Potassium 4.2 mmol/L (3.5-5.1) 10/12/24 06:14 Chloride 103 mmol/L (98-107) 10/12/24 06:14 Carbon Dioxide 24 mmol/L (22-29) 10/12/24 06:14 Anion Gap 15.2 (5-19) 10/12/24 06:14 BUN 15 mg/dL (6-20) 10/12/24 06:14 Creatinine 0.8 mg/dL (0.7-1.2) 10/12/24 06:14 GFR Calculation 106.5 mL/min (90-130) 10/12/24 06:14 Glucose 87 mg/dL (65-115) 10/12/24 06:14 Calculated Osmolality 286 mOsm/kg (285-295) 10/12/24 06:14 Calcium 9.4 mg/dL (8.5-10.5) 10/12/24 06:14 Total Bilirubin 0.4 mg/dL (0.15-1.2) 10/12/24 06:14 AST 18 U/L (0-40) 10/12/24 06:14 ALT 18 U/L (0-41) 10/12/24 06:14 Alkaline Phosphatase 67 U/L (40-130) 10/12/24 06:14 Total Protein 7.4 g/dL (6.6-8.7) 10/12/24 06:14 Albumin 4.7 g/dL (3.5-5.2) 10/12/24 06:14 Globulin 2.7 g/dL (1.3-4.6) 10/12/24 06:14 Urine Color Yellow (Yellow) 10/12/24 06:19 Urine Appearance Clear (CLEAR) 10/12/24 06:19 Urine pH 6.0 (5-7) 10/12/24 06:19 Ur Specific [place] 1.025 (1.005-1.030) 10/12/24 06:19 Urine Protein Negative (Negative) 10/12/24 06:19 Urine Glucose (UA) 2+ (Normal) H 10/12/24 06:19 Urine Ketones Negative (Negative) 10/12/24 06:19 Urine Blood Negative (Negative) 10/12/24 06:19 Urine Nitrate Negative (Negative) 10/12/24 06:19 Urine Bilirubin Negative (Negative) 10/12/24 06:19 Urine Urobilinogen 1.0 mg/dL (Negative) 10/12/24 06:19 Ur Leukocyte Esterase Negative (Negative) 10/12/24 06:19 Urine RBC 0-2 /hpf (0-2) 10/12/24 06:19 Urine WBC 0-5 /hpf (0-5) 10/12/24 06:19 Ur Squamous Epith Cells 0-5 /hpf (0-5) 10/12/24 06:19 Amorphous Sediment Not Reportable 10/12/24 06:19 Urine Bacteria None seen /hpf (NONE) 10/12/24 06:19 Hyaline Casts 0-4 /lpf H 10/12/24 06:19 All radiology interpretation(s) finalized by discharge EKG Data EKG 1: Interpretation: Chest X-Ray 10/12/24 06:04 IMPRESSION: No acute findings. Face CT 10/12/24 07:05 IMPRESSION: Mild chronic sinusitis. EKG 10/12/2024 6:21 AM. Normal sinus rhythm rate of 69. [place] interval 129 QT [address] changes. EKG unchanged from January 11, 2024 Other EKG comments: Chest X-Ray 10/12/24 06:04 IMPRESSION: No acute findings. Face CT 10/12/24 07:05 IMPRESSION: Mild chronic sinusitis. Discharge Plan Discharge Patient Disposition: Home Clinical Impression: Sinusitis Condition: Stable Prescriptions: New amoxicillin-pot clavulanate 875-125 mg tablet 1 tab PO BID Qty: 20 0RF No Action ibuprofen [Advil] 200 mg Tablet 800 mg PO Q6H PRN (Reason: Fever Or Pain) Discharge Orders: Discharge ED (Routine); Ordered 10/12/24 Ordered By: Ramone Cooney Referrals: Tyrlel Bernal MD [Primary Care Provider] - Discharge Diet: Usual diet Discharge Activity: Increase activity as tolerated Patient Instructions: Opioid Safety, Pain Management Activity Restrictions/Additional Instructions: Thank you for choosing [facility] for your healthcare needs today. It is very important that you follow up as instructed or that you return to the Emergency Department should you have concerns or if your condition changes or worsens in any way. You are seen with complaints of right-sided facial pain that he describes as radiating to your neck chest and leg. Reviewing chart and noted that you had been seen for the similar complaint 2 previous times. Exam was unremarkable. CT was done today and showed a sinusitis recommend you treat with antibiotics for this. Recommend you follow-up with your primary care doctor as an outpatient if you have further problems. Print Language: Cymraes Coding Level of Care Code ED Beauty Sales Consultant for Lurdes Regan
--- NOTE | 2024-10-12 06:04 | XRR_ITS ---
PROCEDURE INFORMATION: Exam: XR Chest Exam date and time: 10/12/2024 6:08 AM Age: 43 years old Clinical indication: Cough and dyspnea; Cough with dyspnea; Additional info: Dyspnea/cough TECHNIQUE: Imaging protocol: Radiologic exam of the chest. Views: 1 view. COMPARISON: CR XR chest 1V portable [id number] 08/28/2023 8:38 PM FINDINGS: Lungs: Unremarkable. No consolidation. Pleural spaces: Unremarkable. No pleural effusion. No pneumothorax. Heart/Mediastinum: Unremarkable. No cardiomegaly. Bones/joints: Unremarkable. XR/XR chest 1V portable [id number] IMPRESSION: No acute findings.
[2024-10-12 06:10] VITALS: BP 124/72; PULSE 77; RESP 16; O2SAT 98
[2024-10-12 06:19] LABS: Basophils # 0.1 10^3/uL (0.0-0.1); Basophils % 0.5 %; Eosinophils # 0.1 10^3/uL (0.0-0.8); Eosinophils % 0.7 %; Hematocrit 45.3 % (37-53); Lymphocytes # 1.2 10^3/uL (0.8-4.8); Lymphocytes % 8.3 %; Mean Corpuscular HGB Conc 32.9 g/dL (30-55); Mean Corpuscular Hemoglobin 29.3 pg (27-33); Mean Platelet Volume 9.6 fL (7.4-10.4); Monocytes # 0.8 10^3/uL (0.2-0.9); Monocytes % 5.3 %; Neutrophils # 12.56 10^3/uL (1.8-7.7); Nucleated Red Blood Cells % 0 %; Platelet Count 277 10^3/cmm (157-399); Red Blood Count 5.09 10^6/uL (3.85-5.65); Red Cell Distribution Width 11.9 % (12.1-15.1); White Blood Count 14.78 10^3/uL (3.29-11.43)
--- NOTE | 2024-10-12 06:21 | ECG_ITS ---
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
[2024-10-12 06:29] LABS: Bilirubin Urine Negative (Negative); Blood Urine Negative (Negative); Glucose Urine UA 2+ (Normal); Ketones Urine Negative (Negative); Leukocyte Esterase Urine Negative (Negative); Nitrate Urine Negative (Negative); Protein Urine Negative (Negative); Specific Gravity, Urine 1.025 (1.005-1.030); Urine Appearance Clear (CLEAR); Urine Color Yellow (Yellow)
[2024-10-12 06:34] LABS: Add Urine Microscopic? YES; Bacteria Urine None Seen /hpf; Hyaline Casts Urine 0-4 /lpf; RBC Urine 0-2 /hpf (0-2); Squamous Epithelial Cell Urine 0-5 /hpf (0-5); WBC Urine 0-5 /hpf (0-5)
[2024-10-12 06:40] LABS: Alanine Aminotransferase 18 U/L (0-41); Albumin Level 4.7 g/dL (3.5-5.2); Alkaline Phosphatase 67 U/L (40-130); Anion Gap 15.2 (5-19); Aspartate Amino Transferase 18 U/L (0-40); Blood Urea Nitrogen 15 mg/dL (6-20); Calcium 9.4 mg/dL (8.5-10.5); Carbon Dioxide 24 mmol/L (22-29); Chloride 103 mmol/L (98-107); Creatinine Clr Calc Pharmacy 112.5706; Globulin 2.7 g/dL (1.3-4.6); Glomerular Filtration Rate 106.5 mL/min (90-130); Glucose 87 mg/dL (65-115); Osmolality Calculated 286 mOsm/kg (285-295); Potassium 4.2 mmol/L (3.5-5.1); Sodium 138 mmol/L (136-145); Total Bilirubin 0.4 mg/dL (0.15-1.2); Total Protein 7.4 g/dL (6.6-8.7)
--- NOTE | 2024-10-12 07:05 | CTR_ITS ---
PROCEDURE INFORMATION: Exam: CT Maxillofacial With Contrast Exam date and time: 10/12/2024 7:28 AM Age: 43 years old Clinical indication: Jaw pain; Right sided jaw and facial pain x 1 year, TECHNIQUE: Imaging protocol: Computed tomography of the face with contrast. Radiation optimization: All CT scans at this facility use at least one of these dose optimization techniques: automated exposure control; mA and/or kV adjustment per patient size (includes targeted exams where dose is matched to clinical indication); or iterative reconstruction. Contrast material: OMNIPAQUE 350; Contrast volume: 80 ml; Contrast route: INTRAVENOUS (IV); COMPARISON: CT neck w con* [id number] 01/11/2024 12:05 PM RADIATION DOSE METRICS: Total DLP (mGy-cm): 698.6 FINDINGS: Paranasal sinuses: Moderate mucosal thickening in the ethmoid air cells, mild mucosal thickening in the frontal sinuses. Orbital cavities: Orbits are normal. Globes are unremarkable. Bones: No acute fracture. Soft tissues: Unremarkable. Other findings: No gas fluid level or intracavitary mass. CT/CT facial bones w con [id number] IMPRESSION: Mild chronic sinusitis.
[2024-10-12] MEDS: iohexol 350 mg/mL 500 mL Btl (per mL) IV (07:36)
== END 2024-10-12 08:40 | disposition home or self-care (01) ==
PROVIDERS: Emergency Provider Family Medicine; PCP Family Medicine
DX: J32.9 Chronic sinusitis, unspecified (principal); Z87.891 Personal history of nicotine dependence
CPT/HCPCS: 70487; 71045; 80053; 81001; 85025; 93005; 99285

== ENCOUNTER → 2025-01-22 11:11 | Outpatient (BNVA) | payer MEDICAID, SELFPAY | PROVIDERS: PCP Family Medicine; Visit Provider Psychiatry & Neurology Neurology | DX: G62.9 Polyneuropathy, unspecified (principal); R20.8 Other disturbances of skin sensation | CPT/HCPCS: 36415; 82306; 82550; 82607; 82746; 83735; 83921; 84207; 84439; 84443; 84591; 85025; 86337; 86341 ==

== ENCOUNTER 2025-01-31 12:32 | Outpatient (CLI) | payer MEDICAID, SELFPAY ==
--- NOTE | 2025-01-31 13:00 | MR_ITS ---
WS: [id number] MRI BRAIN WITH AND WITHOUT CONTRAST HISTORY: G62.9 - Polyneuropathy, unspecified COMPARISON: None available. TECHNIQUE: Multiplanar imaging performed through the brain with MultiHance 13 ml's IV. No acute infarcts are seen. Lyles-white matter differentiation is well preserved. Normal hippocampal formations. No susceptibility artifacts or prior lacunar infarcts. Ventricles and extra-axial spaces are normal. Clivus and pituitary gland are normal. Visualized posterior fossa and brainstem are also normal. Postcontrast images are negative for masses or vascular malformations. Dural venous sinuses are normal. Paranasal sinuses: Mild mucoperiosteal thickening in the floor the LEFT maxillary sinus. Additional mild mucoperiosteal thickening throughout the remaining sinuses. Mastoid air cells: Normal. Calvarium and scalp: Normal. MR/MR head wo/w con [id number] IMPRESSION: 1. No diffusion abnormalities or hemorrhage. 2. No significant atrophy and no small vessel disease. 3. No enhancing masses or vascular malformations. 4. No prior infarct or small vessel disease.
[2025-01-31] MEDS: gadobenate dimeglumine 20 mL vial 13 ML IV (13:48)
== END 2025-01-31 12:33 | disposition home or self-care (01) ==
LOC: RAD 12:34
PROVIDERS: PCP Family Medicine; Visit Provider Psychiatry & Neurology Neurology
DX: G62.9 Polyneuropathy, unspecified (principal); J34.89 Other specified disorders of nose and nasal sinuses
CPT/HCPCS: 70553